=== PATIENT | female | born 1980 | race African-American/Black ===

== ENCOUNTER 2020-09-21 06:55 | Emergency (ER) | payer OTHER ==
[~2020-09-21] VITALS: Ht 160 cm; Wt 63.6 kg
--- NOTE | 2020-09-21 07:08 | PHYS DOC ---
Past History Past Medical History: No Pertinent History Past Surgical History: No Surgical History Smoking: Cigarettes Alcohol Use: Occasionally Drug Use: Marijuana General Adult EDM: Chief Complaint: NAUSEA/VOMITING/DIARRHEA HPI: HPI: Patient is a 39-year-old female who presents to the ED with acute onset nausea and vomiting that started at 3 AM that woke her from her sleep. Patient denies this ever happening before. Her pain is a sharp 10 out of 10 and is located diffusely on her abdomen and denies radiation to back. Patient was reports significant pain throughout interview. Patient claims to have been vomiting continually since 3 AM but denies hematemesis. Patient denies any abdominal surgeries and claims last menstrual period was in late August. Patient claims to have consumed some alcohol the night before and denies eating anything out of the ordinary. Patient admits to smoking cigarettes and a little marijuana and consider self and occasional drinker of alcohol. She was driven to the hospital by boyfriend. Patient also claims of minor headache which she noticed starting at 3 AM. Patient denies any fever or chills. Review of Systems: Review of Systems: Constitutional: Denies fever or chills Eyes: Denies redness or eye pain HENT: Denies nasal congestion or sore throat Respiratory: Denies cough or shortness of breath Cardiovascular: Denies chest pain or palpitations GI: Reports diffuse 10/10 abdominal pain. Reports nausea and vomiting : Denies dysuria or hematuria Musculoskeletal: Denies back pain or joint pain Integument: Denies rash or skin lesions Neurologic: complains of headache, denies focal weakness or sensory changes Complete systems were reviewed and found to be within normal limits, except as documented in this note. Allergies: Allergies: Allergies Coded Allergies Type Severity Reaction Last Updated Verified No Known Drug Allergies 09/21/20 No Physical Exam: PE: Constitutional: Well developed adult, patient writhing in pain during exam HENT: Normocephalic, atraumatic Eyes: Conjunctiva normal, no discharge Neck: Normal range of motion, no tenderness, supple Lungs & Thorax: No respiratory distress, equal chest rise and fall, CTAB Abdomen: Soft, diffuse tenderness to palpation in all quadrants. Active bowel sounds. Guarding noted Skin: Warm, dry, no erythema, no rash Back: No tenderness, no CVA tenderness Extremities: No tenderness, ROM intact, no edema Neurologic: Alert and oriented X 3, no focal deficits noted Psychologic: Patient in distress, judgment normal EKG: EKG: [] Radiology/Procedures: Radiology/Procedures: PROCEDURE: CT ABD PELV W/ IV CONTRST ONLY Exam Date: 09/21/2020 8:[address] ABDOMEN+PELVIS W Indication: Reason: abdominal pain, N/V / Spl. Instructions: / History: TECHNIQUE: CT examination of the abdomen and pelvis was performed following the administration of nonionic intravenous contrast. One or more of the following dose reduction techniques were utilized: *Automated exposure control (AEC) *Adjustment of mA and/or kV according to patient size *Use of iterative reconstruction technique *CT scan done according to ALARA, or ALARA/IMAGE GENTLY FINDINGS: The visualized lung bases are clear. Bilateral kidneys appear slightly malrotated. There is a too small to characterize hypodensity in the left kidney. The liver, gallbladder, spleen, pancreas, adrenal glands and kidneys are otherwise normal. Urinary bladder is normal in appearance. Small free fluid in the pelvis is nonspecific. There is a 2 cm left ovarian cyst. There is no bowel obstruction or inflammation. The appendix is normal. Mild atherosclerotic calcifications are seen. No lymphadenopathy or ascites is seen. Osseous structures are intact. IMPRESSION: Small free fluid in the pelvis is nonspecific, likely physiologic. Otherwise no evidence of acute intra-abdominal pathology. Electronically signed by: Crow Martinez MD (09/21/2020 9:19 AM) [id number] Heart Score: C/O Chest Pain: N/A Course & Med Decision Making: Course & Med Decision Making 39-year-old female presents to ED with acute nausea and abdominal pain. IV fluids, pain medications, anti-nausea medications were given. Labs obtained and posted to chart. WBC slightly elevated. Hypomagnesemia addressed. CT abd/pelvis without acute process. Likely viral gastroenteritis vs cyclic vomiting. Patient stable for discharge with outpatient follow-up with PCP/GI. GI referral provided. Discussed findings and plan with patient, who acknowledges understanding and agreement. Rona Disclaimer: Rona Disclaimer: This electronic medical record was generated, in whole or in part, using a voice recognition dictation system. Departure Departure: Impression: Primary Impression: Abdominal pain Qualified Codes: R10.84 - Generalized abdominal pain Additional Impressions: Nausea & vomiting Qualified Codes: R11.2 - Nausea with vomiting, unspecified Hypomagnesemia Disposition: HOME SELF CARE/HOMELESS Condition: STABLE Referrals: PCP,YADIRA (PCP) YAMIL CAMERON MD Patient Instructions: Abdominal Pain (Nonspecific), Clear Liquid Diet, [id number], Hypomagnesemia, Nausea and Vomiting, [id number] Additional Instructions: Increase fluid hydration. Scripts Promethazine Hcl (PROMETHAZINE HCL) 25 Mg Supp.rect 25 MG RC Q8HRS PRN for NAUSEA, #10 SUPP.RECT Prov: ASHER ANGEL DO 09/21/20 Hyoscyamine Sulfate (LEVSIN-SL) 0.125 Mg Tab.subl 0.125 MG SL Q4-6HRS PRN for PAIN, #14 TAB Prov: ASHER ANGEL DO 09/21/20 Famotidine (PEPCID) 20 Mg Tablet 1 TAB PO BID for Gastritis for 5 Days, #10 TAB Prov: ASHER ANGEL DO 09/21/20 Ondansetron (ONDANSETRON ODT) 4 Mg Tab.rapdis 1 TAB PO PRN Q6-8HRS PRN for NAUSEA, #16 TAB Prov: ASHER ANGEL DO 09/21/20 ASHER ANGEL DO Sep 21, 2020 07:07
[2020-09-21] MEDS ORDERED: ONDANSETRON PF 4 MG/2 ML VIAL. IVP ONE (07:15)
[2020-09-21] MEDS ORDERED: KETOROLAC 15 MG/ML VIAL. IVP ONE (07:15)
[2020-09-21] MEDS ORDERED: IV NORMAL SALINE 1,000ML 1,000 ML IV ONE (07:15)
[2020-09-21] MEDS ORDERED: FAMOTIDINE 20 MG/2 ML VIAL IVP ONE (07:15)
[2020-09-21 07:28] LABS: BASO # 0.2 x10^3/uL (0.0-0.2); BASO % 1 % (0-3); EOS # 0.1 x10^3/uL (0.0-0.7); EOS % 1 % (0-3); HEMATOCRIT 44.2 % (36.0-47.0); HEMOGLOBIN 14.6 g/dL (12.0-15.5); LYMPH # 2.6 x10^3/uL (1.0-4.8); LYMPH % 19 % (24-48); MEAN CORPUSCULAR HEMOGLOBIN 29 pg (25-35); MEAN CORPUSCULAR HGB CONC 33 g/dL (31-37); MEAN CORPUSCULAR VOLUME 88 fL (79-100); MONO # 0.6 x10^3/uL (0.0-1.1); MONO % 5 % (0-9); NEUT # 9.9 x10^3uL (1.8-7.7); NEUT % 74 % (31-73); PLATELET COUNT 214 x10^3/uL (140-400); RED BLOOD COUNT 5.01 x10^6/uL (3.50-5.40); RED CELL DISTRIBUTION WIDTH 14.7 % (11.5-14.5); WHITE BLOOD COUNT 13.3 x10^3/uL (4.0-11.0)
[2020-09-21] MEDS ORDERED: CONTRAST GIVEN. MC PRN (07:45)
[2020-09-21] MEDS ORDERED: METOCLOPRAMIDE HCL 10 MG/2 ML VIAL. IVP ONE (07:45)
[2020-09-21] MEDS ORDERED: IOHEXOL 300 MG/ML 75 ML VIAL. IV ONE (07:45)
[2020-09-21] MEDS ORDERED: diphenhydrAMINE 50 MG/ML VIAL IVP ONE (07:45)
[2020-09-21 08:04] LABS: CALCIUM 8.9 mg/dL (8.5-10.1); CREATININE 0.7 mg/dL (0.6-1.0); GFR 113.3; POTASSIUM 3.5 mmol/L (3.5-5.1)
[2020-09-21 08:09] LABS: ALBUMIN 4.1 g/dL (3.4-5.0); ALBUMIN/GLOBULIN RATIO 1.2 (1.0-1.7); MAGNESIUM 1.5 mg/dL (1.8-2.4); TOTAL BILIRUBIN 0.4 mg/dL (0.2-1.0); TOTAL PROTEIN 7.5 g/dL (6.4-8.2)
[2020-09-21 08:35] LABS: BILIRUBIN,URINE NEG (NEG); CLARITY,URINE CLEAR; COLOR,URINE STRAW; GLUCOSE,URINE NEG (NEG)
[2020-09-21 08:36] LABS: BACTERIA,URINE 0 /HPF (0-FEW); NITRITE,URINE NEG (NEG); RBC,URINE 0 /HPF (0-2); SQUAMOUS EPITHELIAL CELL,UR OCC /LPF; UROBILINOGEN,URINE 0.2 mg/dL (0.2 mg/dL); WBC,URINE 0 /HPF (0-4)
--- NOTE | 2020-09-21 09:21 | RAD ---
Exam Date: 09/21/2020 8:[address] ABDOMEN+PELVIS W Indication: Reason: abdominal pain, N/V / Spl. Instructions: / History: TECHNIQUE: CT examination of the abdomen and pelvis was performed following the administration of no nionic intravenous contrast. One or more of the following dose reduction techniques were utilized: *Automated exposure control (AEC) *Adjustment of mA and/or kV according to patient size *Use of iterative reconstruction technique *CT scan done according to ALARA, or ALARA/IMAGE GENTLY FINDINGS: The visualized lung bases are clear. Bilateral kidneys appear slightly malrotated. There is a too small to characterize hypodensity in the left kidney. The liver, gallbladder, spleen, pancreas, adrenal glands and kidneys are otherwise normal. Urinary bladder is normal in appearance. Small free fluid in the pelvis is nonspecific. There is a 2 cm left ovarian cyst. There is no bowel obstruction or inflammation. The appendix is normal. Mild atherosclerotic calcifications are seen. No lymphadenopathy or ascites is seen. Osseous structures are intact. IMPRESSION: Small free fluid in the pelvis is nonspecific, likely physiologic. Otherwise no evidence of acute intra-abdominal pathology. Electronically signed by: Crow Martinez MD (09/21/2020 9:19 AM) [id number]
[2020-09-21] MEDS ORDERED: FAMO-63 PO (09:27)
[2020-09-21] MEDS ORDERED: HYOS0.1265 SL (09:27)
[2020-09-21] MEDS ORDERED: PROM25SU33 RC (09:27)
[2020-09-21] MEDS ORDERED: ONDA4TAB12 PO (09:27)
[2020-09-21] MEDS ORDERED: MAGNESIUM CHLORIDE ER 64 MG TABLET.ER PO ONE (09:30)
[2020-09-21 09:42] VITALS: BP 132/77
== END 2020-09-21 09:45 | disposition home or self-care (01) ==
LOC: ER 06:55
DX: E83.42 Hypomagnesemia (principal); R11.2 Nausea with vomiting, unspecified; R10.84 Generalized abdominal pain; F17.210 Nicotine dependence, cigarettes, uncomplicated
CPT/HCPCS: 36415; 74177; 80053; 81001; 83690; 83735; 84702; 85025; 96361; 96374; 96375; 99285; J1200; J1885; J2405; J2765; J3010; J3490; J7030; Q9967

== ENCOUNTER 2020-09-21 13:21 | Observation (INO) | payer OTHER ==
[~2020-09-21] VITALS: Ht 160 cm; Wt 61.4 kg
[~2020-09-21 13:21] MED LIST: FAMO-63 PO; HYOS0.1265 SL; ONDA4TAB12 PO; PROM25SU33 RC
[2020-09-21] MEDS ORDERED: IV NORMAL SALINE 1,000ML 1,000 ML IV ONE ×2 (13:30→14:15)
[2020-09-21] MEDS ORDERED: ONDANSETRON PF 4 MG/2 ML VIAL. IVP ONE (13:30)
--- NOTE | 2020-09-21 14:11 | PHYS DOC ---
Past History Past Medical History: No Pertinent History Past Surgical History: No Surgical History Smoking: Cigarettes Alcohol Use: Heavy Drug Use: Marijuana General Adult EDM: Chief Complaint: ABDOMINAL PAIN HPI: HPI: Patient is a [age] year old [sex] who presents with [] Review of Systems: Review of Systems: Constitutional: Denies fever or chills Eyes: Denies change in visual acuity HENT: Denies nasal congestion or sore throat Respiratory: Denies cough or shortness of breath Cardiovascular: Denies chest pain or edema GI: Denies abdominal pain, nausea, vomiting, bloody stools or diarrhea : Denies dysuria Musculoskeletal: Denies back pain or joint pain Integument: Denies rash Neurologic: Denies headache, focal weakness or sensory changes Endocrine: Denies polyuria or polydipsia Lymphatic: Denies swollen glands Psychiatric: Denies depression or anxiety Current Medications: Current Meds: Current Medications Medications (Trade) Dose Ordered Sig/Tad Start Time Stop Time Status Last Admin Dose Admin Fentanyl Citrate (Fentanyl 2ml Vial) 50 mcg 1X ONCE 09/21/20 13:30 09/21/20 13:31 DC 09/21/20 13:39 50 MCG Ondansetron HCl (Zofran) 4 mg 1X ONCE 09/21/20 13:30 09/21/20 13:31 DC 09/21/20 13:40 4 MG Sodium Chloride 1,000 ml @ 1,000 mls/hr 1X ONCE 09/21/20 13:30 09/21/20 14:29 09/21/20 13:39 1,000 MLS/HR Allergies: Allergies: Allergies Coded Allergies Type Severity Reaction Last Updated Verified No Known Drug Allergies 09/21/20 No Physical Exam: PE: Constitutional: Well developed, well nourished, no acute distress, non-toxic appearance. [] HENT: Normocephalic, atraumatic, bilateral external ears normal, oropharynx moist, no oral exudates, nose normal. [] Eyes: PERRLA, EOMI, conjunctiva normal, no discharge. [] Neck: Normal range of motion, no tenderness, supple, no stridor. [] Cardiovascular:Heart rate regular rhythm, no murmur [] Lungs & Thorax: Bilateral breath sounds clear to auscultation [] Abdomen: Bowel sounds normal, soft, no tenderness, no masses, no pulsatile masses. [] Skin: Warm, dry, no erythema, no rash. [] Back: No tenderness, no CVA tenderness. [] Extremities: No tenderness, no cyanosis, no clubbing, ROM intact, no edema. [] Neurologic: Alert and oriented X 3, normal motor function, normal sensory function, no focal deficits noted. [] Psychologic: Affect normal, judgement normal, mood normal. [] Current Patient Data: Vital Signs: Vital Signs Date Time Temp Pulse Resp B/P (MAP) Pulse Ox O2 Delivery O2 Flow Rate FiO2 09/21/20 13:30 98.2 58 24 175/97 (123) 100 Room Air EKG: EKG: [] Radiology/Procedures: Radiology/Procedures: [] Heart Score: C/O Chest Pain: N/A Course & Med Decision Making: Course & Med Decision Making Pertinent Labs and Imaging studies reviewed. (See chart for details) [] Dragon Disclaimer: Dragon Disclaimer: This electronic medical record was generated, in whole or in part, using a voice recognition dictation system. Departure Departure: Impression: Primary Impression: Intractable abdominal pain Additional Impressions: Intractable nausea and vomiting Failure of outpatient treatment Suspected COVID-19 virus infection Disposition: ADMITTED INPT THIS HOSP Admitting Physician: Yamel Epps Condition: STABLE Referrals: PCP,NO (PCP) COVID-19 Assessment COVID-19 Patient Risks: Age 65 or older: No Sign of co-morbidity: No Exp to person + for COVID: No Exp to PUI: No Travel from affected area: No Lower respiratory symptoms: No Fever: No Other: Yes PPE Use: Full PPE with N95 mask or PAPR: Yes ASHER ANGEL DO Sep 21, 2020 14:11
[2020-09-21] MEDS ORDERED: ONDANSETRON PF 4 MG/2 ML VIAL. IVP PRN (14:15)
[2020-09-21 15:43] VITALS: BP 115/75
[2020-09-21] MEDS ORDERED: MAGNESIUM SULFATE 2GM 50 ML IV ONE (15:45)
[2020-09-21] MEDS: IV NORMAL SALINE 1,000ML 1,000 ML IV SCH (16:30)
--- NOTE | 2020-09-21 17:49 | NUR ---
Admission Note/Shift Summary Patient was admitted to floor from ED for recurring abdominal pain, nausea, and vomiting. Patient has had controlled pain throughout shift. No nausea/vomiting reported, patient has IV fluids infusing from the ED which have been continued here. Patient is independent and ad alicia in room.
[2020-09-21 19:53] VITALS: BP 118/67
[2020-09-21 23:40] VITALS: BP 113/70
--- NOTE | 2020-09-21 23:51 | NUR ---
PT calm, cooperative and pleasant for assessment and medication administration. PT with 6/10 pain, given medication.
[2020-09-22] MEDS: IV NORMAL SALINE 1,000ML 1,000 ML IV SCH ×2 (02:06→08:04)
[2020-09-22 07:05] VITALS: BP 124/86
[2020-09-22 07:19] LABS: HEMATOCRIT 38.2 % (36.0-47.0); HEMOGLOBIN 12.6 g/dL (12.0-15.5); RED BLOOD COUNT 4.31 x10^6/uL (3.50-5.40); RED CELL DISTRIBUTION WIDTH 14.8 % (11.5-14.5); WHITE BLOOD COUNT 7.2 x10^3/uL (4.0-11.0)
[2020-09-22] MEDS ORDERED: SENNOSIDES 8.6 MG TABLET PO PRN (07:30)
[2020-09-22 07:32] LABS: ALBUMIN 3.1 g/dL (3.4-5.0); ALBUMIN/GLOBULIN RATIO 1.1 (1.0-1.7); CALCIUM 7.9 mg/dL (8.5-10.1); CREATININE 0.6 mg/dL (0.6-1.0); GFR 135.4; MAGNESIUM 1.9 mg/dL (1.8-2.4); POTASSIUM 3.8 mmol/L (3.5-5.1); TOTAL BILIRUBIN 0.7 mg/dL (0.2-1.0); TOTAL PROTEIN 5.9 g/dL (6.4-8.2)
[2020-09-22 11:45] VITALS: BP 140/83
--- NOTE | 2020-09-22 15:30 | NUR ---
Discharge Assessment Patient discharged to home. Home medications returned to patient, discharge packet read and handed to patient with medication scripts. Patient denies any questions at this time. Patient to follow up with PCP in 7-10 days or sooner if needed.
--- NOTE | 2020-09-22 15:54 | SSS ---
ADMIT DATE: HISTORY OF PRESENT ILLNESS: The patient is a 39-year-old -[place] female patient who came to the Emergency Room complaining of abdominal pain together with nausea and vomiting and failure of outpatient department. She also was admitted as a suspected COVID-19 novel virus infection and she was apparently seen prior in the Emergency Room, was sent home and came back with the same symptoms. Therefore, she was admitted and was started on IV fluid, IV antibiotic, IV pain medication, antiemetic and she did actually very well and was started on a clear liquid diet and diet advanced and tolerating diet, has had no further episodes of nausea, vomiting, no abdominal pain. A decision was made to discharge her home. PAST MEDICAL HISTORY: Unremarkable. PAST SURGICAL HISTORY: Unremarkable. ALLERGIES: She has no known drug allergies. MEDICATIONS: She is currently on promethazine 25 mg every 8 hours rectally, hyoscyamine sulfate 0.125 mg for Levsin every 4-6 hours, ondansetron 4 mg every 6-8 hours, and famotidine 20 mg twice a day. FAMILY HISTORY: Noncontributory. SOCIAL HISTORY: She apparently is , has 6 children. She drinks alcohol heavily and smokes marijuana. PHYSICAL EXAMINATION: GENERAL: On arrival to the Emergency Room, she looked well and was clearly in no apparent respiratory distress. No pallor, jaundice, cyanosis or thyromegaly. No jugular venous distention. No lower limb edema. VITAL SIGNS: Her heart rate was 58, blood pressure was 175/97, temperature 98.2, respiratory rate 24, and oxygen saturation was 100% on room air. HEAD, EYES, EARS, NOSE AND THROAT: Normocephalic, atraumatic. NECK: Supple. HEART: Showed normal first and second heart sounds. No gallop, rub or murmur. CHEST: Clear to auscultation. No crepitation or rhonchi. ABDOMEN: Soft, nontender. No masses or pulsatile masses. NEUROLOGICALLY: She was grossly intact. LABORATORY DATA: Her lab work in the Emergency Room showed that her white cell count was 13,300, hemoglobin 14.6, hematocrit 44, MCV 88 and platelet count 214,000. Her serum sodium was 139, potassium 3.5, chloride 104, bicarbonate 23, anion gap of 12, BUN 11, creatinine 0.7, estimated GFR was 113, glucose 118, calcium was 8.9, magnesium was 1.5. Total bilirubin, AST, ALT, alkaline phosphatase were normal. Total protein 7.5, albumin was 4.1. Urinalysis essentially unremarkable. The patient was admitted with a diagnosis of intractable abdominal pain as well as recurrent intractable nausea and vomiting. According to her, she has probably alcohol-induced gastritis. The patient was admitted, started on IV fluid, antiemetic and pain medication and she did very well. When I saw her this afternoon, she looked well and was clearly in no apparent respiratory distress. She was tolerating her diet, has no further episodes of nausea, vomiting, no abdominal pain. A decision was made to discharge her home. Her lab work this afternoon showed a white cell count 7200, hemoglobin 12.6, hematocrit 38, MCV 89 and platelet count of 170,000. Serum sodium 141, potassium 3.8, chloride 108, bicarbonate 23, anion gap of 10, BUN 6, creatinine 0.6, estimated GFR was 135 mL per minute. Her glucose was 87, calcium was 7.9, magnesium was 1.9. Total bilirubin, AST, ALT, alkaline phosphatase were normal. Total protein was 5.9, albumin was 3.1. Serum lipase was only 79. ASSESSMENT: Intractable nausea and vomiting, abdominal pain, likely due to alcohol-induced gastritis. Other medical problems include alcohol abuse, nicotine dependence, and marijuana abuse. RAJEEV SALGADO MD DR: JENNA/anitha JOB#: [id number] / [id number]
== END 2020-09-22 14:50 | disposition home or self-care (01) ==
LOC: ER 13:21 → 1 SOUTH 14:06
PROVIDERS: ADMIT Internal Medicine; ATTEND Internal Medicine
DX: R11.2 Nausea with vomiting, unspecified (principal); Z20.822 Contact with and (suspected) exposure to COVID-19; R10.9 Unspecified abdominal pain; F10.10 Alcohol abuse, uncomplicated; F12.10 Cannabis abuse, uncomplicated; F17.200 Nicotine dependence, unspecified, uncomplicated
CPT/HCPCS: 36415; 80053; 83690; 83735; 85027; 96361; 96365; 96366; 96375; 96376; 99285; G0378; J2405; J3010; J3475; J7030; U0003; U0005; G0379

== ENCOUNTER 2020-12-22 13:37 | Emergency (ER) | payer OTHER ==
[~2020-12-22] VITALS: Ht 160 cm; Wt 61.4 kg
[2020-12-22] MEDS ORDERED: diphenhydrAMINE 50 MG/ML VIAL IVP ONE (14:00)
[2020-12-22] MEDS ORDERED: IV NORMAL SALINE 1,000ML 1,000 ML IV ONE (14:00)
[2020-12-22] MEDS ORDERED: ONDANSETRON PF 4 MG/2 ML VIAL. IVP ONE ×2 (14:00→15:30)
[2020-12-22] MEDS ORDERED: MORPHINE SULFATE 2 MG/ML DISP.SYRIN. IV ONE (14:00)
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
[2020-12-22 14:37] VITALS: BP 131/81
[2020-12-22] MEDS ORDERED: CONTRAST GIVEN. MC PRN (15:00)
[2020-12-22] MEDS ORDERED: IOHEXOL 300 MG/ML 75 ML VIAL. IV ONE (15:00)
[2020-12-22 15:11] LABS: BASO # 0.1 x10^3/uL (0.0-0.2); BASO % 1 % (0-3); EOS # 0.1 x10^3/uL (0.0-0.7); EOS % 1 % (0-3); HEMATOCRIT 43.2 % (36.0-47.0); HEMOGLOBIN 14.2 g/dL (12.0-15.5); LYMPH # 1.5 x10^3/uL (1.0-4.8); LYMPH % 18 % (24-48); MEAN CORPUSCULAR HEMOGLOBIN 30 pg (25-35); MEAN CORPUSCULAR HGB CONC 33 g/dL (31-37); MEAN CORPUSCULAR VOLUME 91 fL (79-100); MONO # 0.7 x10^3/uL (0.0-1.1); MONO % 8 % (0-9); NEUT % 71 % (31-73); PLATELET COUNT 276 x10^3/uL (140-400); RED BLOOD COUNT 4.75 x10^6/uL (3.50-5.40); RED CELL DISTRIBUTION WIDTH 13.6 % (11.5-14.5); WHITE BLOOD COUNT 8.4 x10^3/uL (4.0-11.0)
[2020-12-22 15:17] LABS: CALCIUM 8.3 mg/dL (8.5-10.1); CREATININE 0.7 mg/dL (0.6-1.0); GFR 112.7; POTASSIUM 3.2 mmol/L (3.5-5.1)
[2020-12-22] MEDS ORDERED: MORPHINE SULFATE 4 MG/ML DISP.SYRIN. ONE (15:19)
[2020-12-22 15:23] LABS: ALBUMIN 3.8 g/dL (3.4-5.0); ALBUMIN/GLOBULIN RATIO 1.1 (1.0-1.7); TOTAL BILIRUBIN 0.9 mg/dL (0.2-1.0); TOTAL PROTEIN 7.3 g/dL (6.4-8.2)
[2020-12-22] MEDS ORDERED: MORPHINE SULFATE 4 MG/ML DISP.SYRIN. IV ONE (15:30)
--- NOTE | 2020-12-22 15:33 | RAD ---
EXAMINATION: CT ABDOMEN+PELVIS W CLINICAL HISTORY: Abdominal pain, n/v TECHNIQUE: CT of the abdomen and pelvis was performed using standard technique, scanning from just ab ove the dome of the diaphragm to the symphysis pubis following administration of intravenous contrast . CT Dose Reduction Employed: One or more of the following individualized dose reduction techniques wer e utilized for this examination: 1. Automated exposure control 2. Adjustment of the mA and/or kV ac cording to patient size 3. Use of iterative reconstruction technique. COMPARISON: 09/21/2020 FINDINGS: Small old calcified granuloma posterior right lung base. Moderately distended gallbladder. No visualized cholelithiasis or evidence of acute cholecystitis. Fo bernadine fatty infiltration in the liver along the anterior falciform ligament. Pancreas, spleen, and adre nal glands unremarkable. Tiny hypoenhancing cortical foci in the bilateral kidneys, too small adequately characterize but like ly benign. Mildly filled urinary bladder. Uterus and adnexa within normal limits for patient's age with prominen t left ovarian follicles versus small septated cyst, similar to prior study. Mild free fluid in the p zi again noted, likely physiologic. No bowel dilation or definite wall thickening. Nondilated appendix. Mild arterial atherosclerotic calcification without aneurysm. Grade 1 L5-S1 retrolisthesis, similar to prior study. IMPRESSION: No evidence of acute abdominopelvic abnormality or significant interval change. Nonacute findings as described. Electronically signed by: Papi Cortes DO (12/22/2020 3:30 PM) [facility]
[2020-12-22] MEDS ORDERED: POTASSIUM CHLORIDE 20 MEQ TABLET.ER. PO ONE (15:45)
[2020-12-22] MEDS ORDERED: MAGNESIUM OXIDE 400 MG TABLET PO ONE (16:30)
== END 2020-12-22 16:42 | disposition home or self-care (01) ==
LOC: ER 13:37
DX: R10.84 Generalized abdominal pain (principal); R51.9 Headache, unspecified; R11.2 Nausea with vomiting, unspecified; F17.210 Nicotine dependence, cigarettes, uncomplicated; F10.20 Alcohol dependence, uncomplicated; Y90.9 Presence of alcohol in blood, level not specified
CPT/HCPCS: 36415; 74177; 80053; 83690; 83735; 85025; 96361; 96374; 96375; 96376; 99285; J1200; J2270; J2405; J7030

== ENCOUNTER 2020-12-24 09:24 | Emergency (ER) | payer OTHER ==
[~2020-12-24] VITALS: Ht 160 cm; Wt 61.4 kg
[2020-12-24 09:24] VITALS: BP 134/87
--- NOTE | 2020-12-24 09:34 | PHYS DOC ---
Past History Past Medical History: No Pertinent History Past Surgical History: No Surgical History Smoking: Cigarettes Alcohol Use: None Drug Use: Marijuana General Adult EDM: Chief Complaint: ABDOMINAL PAIN HPI: HPI: 40-year-old female past medical history of tobacco dependence presents the ED with complaints of left-sided upper and lower abdominal pain described as sharp, nonradiating in nature with one "hard turd," she passed earlier this morning. Reports her LMP was last month. Denies any recent alcohol abuse. Pain started around 4:00 this morning. Denies any other drug use including marijuana. EMR was reviewed and patient was seen in the ED 2 days ago for generalized pain. CT report showed enlarged gallbladder. HPI reports patient presented for pain control and was uncooperative with care, writhing in bed, ems reported emesis. Review of Systems: Review of Systems: Constitutional: Denies fever or chills Eyes: Denies change in visual acuity HENT: Denies nasal congestion or sore throat Respiratory: Denies cough or shortness of breath Cardiovascular: Denies chest pain or edema GI: Denies nausea, vomiting, bloody stools or diarrhea : Denies dysuria or vaginal bleeding Musculoskeletal: Denies back pain or joint pain Integument: Denies rash or diaphoresis Neurologic: Denies headache, focal weakness or sensory changes Endocrine: Denies polyuria or polydipsia Lymphatic: Denies swollen glands Psychiatric: Denies depression or anxiety Allergies: Allergies: Allergies Coded Allergies Type Severity Reaction Last Updated Verified No Known Drug Allergies 09/21/20 No Physical Exam: PE: Constitutional: non-toxic appearance, writhing/constantly moving in ed/moaning, exposing her breasts (pulling out from her bra and clothing despite direction to stay clothed), repeatedly asking for analgesia HENT: Normocephalic, atraumatic, dry mucous membranes, no signs of head trauma Eyes: EOMI, conjunctiva normal, no discharge. Neck: Normal range of motion, supple, Cardiovascular: S1/2 present, regular rhythm Lungs & Thorax: Speaking in full sentences, bilateral equal chest rise, no tachypnea or increased work of breathing Abdomen: soft, reports left upper and lower quadrant tenderness with no Preston sign, no McBurney's point tenderness, no peritonitis or rigidity Skin: Warm, dry, no erythema, no rash. [] Back: No tenderness, reports left CVA tenderness. [] Extremities: No tenderness, no cyanosis, no lower extremity edema Neurologic: Alert and oriented X 3, normal motor function, normal sensory function, no focal deficits noted. [] Psychologic: Affect normal, judgement normal, mood normal. [] EKG: EKG: Sinus rhythm at 77 bpm, no axis deviation, normal intervals, no T wave inversions, no ST depressions or ST depressions Radiology/Procedures: Radiology/Procedures: IMAGING REPORT Signed PATIENT: ADRIANA COSBY ACCOUNT: [id number] : 1980 LOCATION: ER AGE: 40 SEX: F EXAM STATUS: REG ER ORD. PHYSICIAN: DEBBIE ANAYA DO REASON: abd pain PROCEDURE: CHEST AP ONLY EXAMINATION: Chest radiograph. VIEWS: Single view COMPARISON: None INDICATION:40 years, Female, abdomen pain. FINDINGS: Normal cardiomediastinal silhouette. No focal consolidation. No pleural effusion or pneumothorax. No acute osseous process. IMPRESSION: No acute cardiopulmonary process. Electronically signed by: Que Oro MD (12/24/2020 10:30 AM) [id number] DICTATED AND SIGNED BY: QUE ORO MD DATE: 12/24/20 1029 CC: PCP,NO; DEBBIE ANAYA DO ~MTH0 0 IMAGING REPORT Signed PATIENT: ADRIANA COSBY ACCOUNT: [id number] : 1980 LOCATION: ER AGE: 40 SEX: F EXAM STATUS: REG ER ORD. PHYSICIAN: DEBBIE ANAYA DO REASON: severe luq/llq abd pain PROCEDURE: CT ANGIOGRAPHY ABD AND PELVIS Exam Date: 12/24/2020 11:21 AM CTA ABDOMEN AND PELVIS WITHOUT IV CONTRAST Indication: Reason: severe luq/llq abd pain / Spl. Instructions: omni 350 100ml / History: . Technique: CT ANGIOGRAM OF THE CHEST, ABDOMEN AND PELVIS was performed before and after administration of nonionic intravenous contrast. 3-D reconstructed images were created on an independent workstation and reviewed to assist in clinical management. One or more of the following dose reduction techniques were utilized: *Automated exposure control (AEC) *Adjustment of mA and/or kV according to patient size *Use of iterative reconstruction technique *CT scan done according to ALARA, or ALARA/IMAGE GENTLY COMPARISON: December 22, 2020 Findings: CT ANGIOGRAM AORTA: The aorta is normal in course and caliber. There is no evidence of aneurysm, stenosis, wall thickening or dissection. The celiac axis, SMA, duplicated left renal arteries, single right renal artery, and ELEAZAR are patent. Mild vascular calcifications are noted. CT ANGIOGRAM ABDOMEN PELVIS: Lung bases are clear. The liver, gallbladder, spleen, pancreas, adrenal glands and kidneys are normal. Urinary bladder is normal in appearance. There is no bowel obstruction or inflammation. The appendix is normal. No significant atherosclerotic calcifications are seen. No lymphadenopathy is seen. Small free fluid in the pelvis is nonspecific, possibly physiologic. There is a 1.8 cm left adnexal cyst. Degenerative changes are seen in the spine. Impression: Normal caliber abdominal aorta without evidence for dissection. Small free fluid in the pelvis is nonspecific, likely physiologic. Otherwise normal exam. Electronically signed by: Kaitlin Martinez MD (12/24/2020 12:06 PM) [facility] DICTATED AND SIGNED BY: KAITLIN MARTINEZ MD DATE: 12/24/20 1144 CC: PCP,NO; DEBBIE ANAYA DO ~MTH0 0 Heart Score: C/O Chest Pain: No Risk Factors: Risk Factors: DM, Current or recent (<one month) smoker, HTN, HLP, family hist ory of CAD, obesity. Risk Scores: Score 0 - 3: 2.5% MACE over next 6 weeks - Discharge Home Score 4 - 6: 20.3% MACE over next 6 weeks - Admit for Clinical Observation Score 7 - 10: 72.7% MACE over next 6 weeks - Early Invasive Strategies Course & Med Decision Making: Course & Med Decision Making Pertinent Labs and Imaging studies reviewed. (See chart for details) Concern for left-sided abdominal pain in the setting of urinary tract infection, dehydration, PCP, and marijuana abuse. Patient with no leukocytosis. Upon reevaluation patient states "why do I feel so warm?" Reports history of similar/prior symptoms that were alleviated by taking a warm shower. Symptoms likely related to urinary tract infection versus cannabinoid syndrome, patient with no active emesis in ED. Has no vaginal bleeding or pelvic pain (CT with mild, nonspecific free fluid). I encouraged cessation of marijuana use. Pts; abdominal pain almost fully resolved, abdomen soft, no focal ttp on repeat exam. Will discharge home with strict ED return precautions were given for severe pain, intractable nausea or vomiting, dehydration, fever, headache or neurologic deficits. Encouraged urgent outpatient follow-up with PMD. Life-threatening processes were considered but are low suspicion at this time, given history, physical exam and ED workup. Pt was educated on all prescription medications and adverse effects. All patient's questions were answered and pt was stable at time of discharge. Life/limb-threatening differential includes but is not limited to, aortic dissection, aortic aneurysm, acute coronary syndrome, surgical abdomen (appendicitis, cholecystitis, ischemic bowel, strangulated hernia, etc), bowel obstruction or volvulus, bladder outlet obstruction, gastrointestinal bleeding, inflammatory bowel disease, peptic ulcer disease, ACS/CAD, sepsis, diverticular disease, ureterolithiasis, nephrolithiasis, ovarian torsion, ectopic , vaginal hemorrhage, or genitourinary infection. I have spoken with the patient and/or caregivers. I explained the patient's condition, diagnoses and treatment plan based on the information available to me at this time. I have answered the patient and/or caregiver's questions and addressed any concerns. The patient and/or caregivers have a good understanding of patient's diagnosis, condition and treatment plan as can be expected at this point. Vital signs have been stable. Patient's condition is stable and appropriate for discharge from the emergency department. Patient will pursue further outpatient evaluation with primary care physician or other designated or consulting physician as outlined in the discharge instructions. The patient and/or caregivers are agreeable to this plan of care and follow-up instructions have been explained in detail. The patient and/or caregivers have received these instructions in written form and have expressed an understanding of the discharge instructions. The patient and/or caregivers are aware that any significant change of condition or worsening of symptoms should prompt immediate return to this or the closest emergency department or call to 911. Rona Disclaimer: Rona Disclaimer: This electronic medical record was generated, in whole or in part, using a voice recognition dictation system. Departure Departure: Impression: Primary Impression: Abdominal pain Additional Impressions: UTI (urinary tract infection) PCP abuse Marijuana abuse Ketonuria Disposition: HOME / SELF CARE / HOMELESS Condition: STABLE Referrals: PCP,NO (PCP) in 1- 2 days for re-evaluation Patient Instructions: Abdominal Pain, Dehydration, Adult, Marijuana Abuse and Chemical Dependency, Urinary Tract Infection Additional Instructions: IF UNABLE TO FOLLOW UP WITH PCP: [facility]-Dr. Batista or Dr. Soni [facility] [address], [address] [place] [address] OR [facility]-Dr. Fisher [address] [place] [address] EMERGENCY DEPARTMENT GENERAL DISCHARGE INSTRUCTIONS Thank you for coming to [facility] (ED) today and trusting us with you care. We trust that you had a positivie experience in our Emergency Department. If you wish to speak to the department management, you may call the director at [phone]. ADDITIONAL INSTRUCTIONS AND INFORMATION: 1. Your care today has been supervised by a physician who is specially trained in emergency care. Many problems require more than one evaluation for a complete diagnosis and treatment. We recommend that you schedule your follow up appointment as recommended to ensure complete treatment of you illness or injury. If you are unable to obtain follow up care and continue to have a problem, or if your condition worsens, we recommend that you return to the ED. 2. We are not able to safely determine your condition over the phone nor are we able to give sound medical advice over the phone. For these safety reasons, if you call for medical advice we will ask you to come to the ED for further evaluation. 3. If you have any questions regarding these discharge instructions please call the ED at [phone]. SAFETY INFORMATION: In the interest of safety, wellness, and injury prevention; we encourage you to wear your sealbelt, if you smoke; quite smoking, and we encourage family to use a protective helmet for bicycling and other sporting events that present an increased risk for head injury. IF YOUR SYMPTOMS WORSEN OR NEW SYMPTOMS DEVELOP, OR YOU HAVE CONCERNS ABOUT YOUR CONDITION; OR IF YOUR CONDITION WORSENS WHILE YOU ARE WAITING FOR YOUR FOLLOW UP APPOINTMENT; EITHER CONTACT YOUR PRIMARY CARE DOCTOR, THE PHYSICIAN WHOSE NAME AND NUMBER YOU WERE GIVEN, OR RETURN TO THE ED IMMEDIATELY. Scripts Capsaicin (CAPSAICIN) 42.5 Gm Cream..g. 1 GARTH TP TID PRN for ABDOMINAL CRAMPS, #1 GM 0 Refills take as needed for abdominal pain, nausea or vomiting with marijuana use, will burn-apply to ABDOMEN Prov: DEBBIE ANAYA DO 12/24/20 Phenazopyridine Hcl (PHENAZOPYRIDINE HCL) 100 Mg Tablet 1 TAB PO TID for urinary discomfort for 3 Days, #9 TAB 0 Refills Prov: DEBBIE ANAYA DO 12/24/20 Nitrofurantoin Monohyd/M-Cryst (MACROBID 100 MG CAPSULE) 100 Mg Capsule 1 CAP PO BID for uti for 7 Days, #14 CAP 0 Refills Prov: DEBBIE ANAYA DO 12/24/20 DEBBIE ANAYA DO Dec 24, 2020 09:34
[2020-12-24] MEDS ORDERED: ONDANSETRON ODT 4 MG TAB.RAPDIS ONE (09:42)
[2020-12-24] MEDS ORDERED: ONDANSETRON ODT 4 MG TAB.RAPDIS PO ONE (09:45)
--- NOTE | 2020-12-24 10:03 | EKG ---
[address] [address] Test Date: 2020-12-24 Test Time: 09:38:03 Pat Name: ADRIANA COSBY Department: Room: Gender: F Strategic Account Director: JUNA : 1980 Requested By: DEBBIE ANAYA Order Number: [id number] Reading MD: Measurements Intervals [place] Rate: 77 P: 72 NM: 140 QRS: 61 QRSD: 68 T: 50 QT: 358 QTc: 407 Interpretive Statements SINUS RHYTHM OTHERWISE NORMAL ECG RI6.02 No previous ECG available for comparison
[2020-12-24] MEDS ORDERED: KETOROLAC 15 MG/ML VIAL. IVP ONE (10:30)
[2020-12-24 10:32] LABS: BASO # 0.1 x10^3/uL (0.0-0.2); BASO % 1 % (0-3); EOS # 0.1 x10^3/uL (0.0-0.7); EOS % 1 % (0-3); HEMATOCRIT 41.5 % (36.0-47.0); HEMOGLOBIN 13.9 g/dL (12.0-15.5); LYMPH # 2.5 x10^3/uL (1.0-4.8); LYMPH % 26 % (24-48); MEAN CORPUSCULAR HEMOGLOBIN 30 pg (25-35); MEAN CORPUSCULAR HGB CONC 34 g/dL (31-37); MEAN CORPUSCULAR VOLUME 90 fL (79-100); MONO # 0.6 x10^3/uL (0.0-1.1); MONO % 7 % (0-9); NEUT # 6.3 x10^3uL (1.8-7.7); NEUT % 65 % (31-73); PLATELET COUNT 273 x10^3/uL (140-400); RED BLOOD COUNT 4.64 x10^6/uL (3.50-5.40); RED CELL DISTRIBUTION WIDTH 13.9 % (11.5-14.5); WHITE BLOOD COUNT 9.6 x10^3/uL (4.0-11.0)
--- NOTE | 2020-12-24 10:32 | RAD ---
EXAMINATION: Chest radiograph. VIEWS: Single view COMPARISON: None INDICATION:40 years, Female, abdomen pain. FINDINGS: Normal cardiomediastinal silhouette. No focal consolidation. No pleural effusion or pneumothorax. No acute osseous process. IMPRESSION: No acute cardiopulmonary process. Electronically signed by: Nelson Oro MD (12/24/2020 10:30 AM) [id number]
[2020-12-24 10:51] LABS: ALBUMIN 3.7 g/dL (3.4-5.0); CALCIUM 8.7 mg/dL (8.5-10.1); CREATININE 0.5 mg/dL (0.6-1.0); GFR 166.2; TOTAL BILIRUBIN 0.7 mg/dL (0.2-1.0); TOTAL PROTEIN 7.4 g/dL (6.4-8.2)
[2020-12-24 10:55] LABS: POTASSIUM 5.1 mmol/L (3.5-5.1)
[2020-12-24 10:57] LABS: DIRECT BILIRUBIN 0.1 mg/dL (0.0-0.2)
[2020-12-24] MEDS ORDERED: IOHEXOL 350 MG/ML 100 ML VIAL. IV ONE (11:00)
[2020-12-24] MEDS ORDERED: HALOPERIDOL LACT 5 MG/ML VIAL. IVP ONE (11:15)
--- NOTE | 2020-12-24 11:20 | EKG ---
[address] [address] Test Date: 2020-12-24 Test Time: 11:07:54 Pat Name: ADRIANA COSBY Department: Room: Gender: F Block Hacker: JUAN : 1980 Requested By: DEBBIE ANAYA Order Number: [id number] Reading MD: Measurements Intervals [place] Rate: 80 P: 71 VA: 150 QRS: 61 QRSD: 70 T: 45 QT: 378 QTc: 440 Interpretive Statements SINUS RHYTHM NORMAL ECG RI6.02 No previous ECG available for comparison
[2020-12-24 11:21] LABS: MAGNESIUM 2.1 mg/dL (1.8-2.4)
[2020-12-24 11:28] LABS: AMPHETAMINE/METHAMPHETAMINE NEG (NEG); BARBITURATES NEG (NEG); BENZODIAZEPINES NEG (NEG); CANNABINOIDS POS (NEG); COCAINE NEG (NEG); METHADONE NEG (NEG); OPIATES NEG (NEG); PHENCYCLIDINE POS (NEG)
[2020-12-24 11:34] LABS: BACTERIA,URINE MANY /HPF (0-FEW); BILIRUBIN,URINE NEG (NEG); CLARITY,URINE CLOUDY; COLOR,URINE YELLOW; GLUCOSE,URINE NEG (NEG); NITRITE,URINE POS (NEG); RBC,URINE OCC /HPF (0-2)
[2020-12-24 11:35] LABS: SQUAMOUS EPITHELIAL CELL,UR MANY /LPF
[2020-12-24] MEDS ORDERED: PHENAZOPYRIDINE 200 MG TABLET. PO ONE (12:00)
--- NOTE | 2020-12-24 12:08 | RAD ---
Exam Date: 12/24/2020 11:21 AM CTA ABDOMEN AND PELVIS WITHOUT IV CONTRAST Indication: Reason: severe luq/llq abd pain / Spl. Instructions: omni 350 100ml / History: . Technique: CT ANGIOGRAM OF THE CHEST, ABDOMEN AND PELVIS was performed before and after administratio n of nonionic intravenous contrast. 3-D reconstructed images were created on an independent workstat ion and reviewed to assist in clinical management. One or more of the following dose reduction techn iques were utilized: *Automated exposure control (AEC) *Adjustment of mA and/or kV according to patient size *Use of iterative reconstruction technique *CT scan done according to ALARA, or ALARA/IMAGE GENTLY COMPARISON: December 22, 2020 Findings: CT ANGIOGRAM AORTA: The aorta is normal in course and caliber. There is no evidence of aneurysm, stenosis, wall thickenin g or dissection. The celiac axis, SMA, duplicated left renal arteries, single right renal artery, and ELEAZAR are patent. Mild vascular calcifications are noted. CT ANGIOGRAM ABDOMEN PELVIS: Lung bases are clear. The liver, gallbladder, spleen, pancreas, adrenal glands and kidneys are normal. Urinary bladder is normal in appearance. There is no bowel obstruction or inflammation. The append ix is normal. No significant atherosclerotic calcifications are seen. No lymphadenopathy is seen. Small free fluid in the pelvis is nonspecific, possibly physiologic. There is a 1.8 cm left adnexal cyst. Degenerative changes are seen in the spine. Impression: Normal caliber abdominal aorta without evidence for dissection. Small free fluid in the pelvis is nonspecific, likely physiologic. Otherwise normal exam. Electronically signed by: Crow Martinez MD (12/24/2020 12:06 PM) [facility]
[2020-12-24] MEDS ORDERED: NITR100C62 PO (12:18)
[2020-12-24] MEDS ORDERED: PHEN-443 PO (12:18)
[2020-12-24] MEDS ORDERED: CAPS42.514 TP (12:18)
[2020-12-24] MEDS ORDERED: IV NORMAL SALINE 1,000ML 1,000 ML IV ONE (12:30)
[2020-12-24] MEDS ORDERED: IV NORMAL SALINE 50ML 50 ML ONE (12:31)
[2020-12-24] MEDS ORDERED: cefTRIAXone SODIUM 1 GM VIAL ONE (12:31)
[2020-12-24 12:56] LABS: U PREG PATIENT NEGATIVE (NEG)
== END 2020-12-24 12:40 | disposition home or self-care (01) ==
LOC: ER 09:24
DX: N39.0 Urinary tract infection, site not specified (principal); F12.10 Cannabis abuse, uncomplicated; R82.4 Acetonuria; F17.210 Nicotine dependence, cigarettes, uncomplicated
CPT/HCPCS: 36415; 71045; 74174; 80048; 80076; 80307; 81001; 81025; 83690; 83735; 84484; 85025; 87086; 93005; 96374; 96375; 99285; J0696; J1630; J1885; J7030; Q0162

== ENCOUNTER 2021-10-26 08:35 | Emergency (ER) | payer OTHER ==
[~2021-10-26] VITALS: Ht 160 cm; Wt 54.9 kg
[~2021-10-26 08:35] MED LIST changes: +CAPS42.514 TP; +NITR100C62 PO; +PHEN-443 PO
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
[2021-10-26] MEDS ORDERED: CYCL5TAB PO (10:12)
[2021-10-26] MEDS ORDERED: NAPR-682 PO (10:12)
[2021-10-26] MEDS ORDERED: HYDROcodone/APAP 5/325MG 1 TAB TABLET ONE (10:24)
[2021-10-26] MEDS ORDERED: HYDROcodone/APAP 5/325MG 1 TAB TABLET PO ONE (10:30)
[2021-10-26 10:40] VITALS: BP 140/84
== END 2021-10-26 10:45 | disposition home or self-care (01) ==
LOC: ER 08:35
DX: S20.211A Contusion of right front wall of thorax, initial encounter (principal); S20.219A Contusion of unspecified front wall of thorax, initial encounter; F17.210 Nicotine dependence, cigarettes, uncomplicated; Y08.89XA Assault by other specified means, initial encounter; Y93.89 Activity, other specified; Y92.89 Other specified places as the place of occurrence of the external cause; Y99.8 Other external cause status
CPT/HCPCS: 71101; 71120; 99284